=== PATIENT | male | born 1970 | race Caucasian/White ===

== ENCOUNTER 2016-11-15 18:42 | Emergency (ER) | payer OTHER ==
[2016-11-15] MEDS ORDERED: NS 1,000 ML IV ONE ×2 (18:51→19:51)
[2016-11-15 18:54] VITALS: TEMP 98.2
[2016-11-15 18:55] LABS: % IMMATURE GRANULYOCYTES 0.2 % (0.0-1.1); ABSOLUTE IMMATURE GRANULOCYTES 0.02 10^3/uL (0.00-0.10); ADD DIFF? NO; ADD MORPH? NO; ADD SCAN? NO; ATYPICAL LYMPHOCYTE FLAG 10 (0-99); FRAGMENT RBC FLAG 0 (0-99); HEMATOCRIT 48.3 % (40.0-51.0); HEMOGLOBIN 17.1 g/dL (13.7-17.5); LEFT SHIFT FLG 0 (0-99); LIPEMIA HEMOLYSIS FLAG 90 (0-99); MEAN CELL HEMOGLOBIN CONCENTR. 35.4 g/dL (32.4-36.7); MEAN CELL VOLUME 90.3 fL (81.5-99.8); MEAN PLATELET VOLUME 10.2 fL (8.7-11.7); PLATELET CLUMPS FLAG 20 (0-99); PLATELET COUNT 281 10^3/uL (150-400); RED BLOOD CELL COUNT 5.35 10^6/uL (4.40-6.38); RED CELL DISTRIBUTION WIDTH 12.1 % (11.5-15.2)
[2016-11-15 19:07] LABS: ANION GAP 17 mEq/L (8-16); CALCIUM 9.7 mg/dL (8.5-10.4); CARBON DIOXIDE 22 mEq/l (22-31); CHLORIDE 97 mEq/L (97-110); CREATININE 1.3 mg/dL (0.7-1.3); GLOMERULAR FILTRATION RATE 60; GLUCOSE 141 mg/dL (70-100); POTASSIUM 3.3 mEq/L (3.5-5.2); SODIUM 136 mEq/L (134-144)
--- NOTE | 2016-11-15 19:07 | CPEKG ---
Heart Rate: 86 RR Interval: 698 P-R Interval: 164 QRSD Interval: 94 QT Interval: 400 QTC Interval: 479 P [place]: 72 QRS [place]: 4 T Wave [place]: 48 EKG Severity - BORDERLINE ECG - EKG Impression: SINUS RHYTHM EKG Impression: BORDERLINE PROLONGED QT INTERVAL Electronically Signed By: Ross Patterson 18-Nov-2016 17:06:48
--- NOTE | 2016-11-15 19:08 | EDPHY ---
H & P Stated Complaint: Marijuana ingestion, feels "weird" Source: Patient, EMS Exam Limitations: No limitations HPI/ROS: CHIEF COMPLAINT: Marijuana ingestion, multiple complaints HISTORY OF PRESENT ILLNESS: Patient arrives by EMS and was seen at time of arrival. Reports ingestion of 20mg edible indica marijuana over 4 hours. He reports that he and his came up from [place] for a date night. They were going to dinner at a concert. He took 10 mg then waited 1 hour. He says that he felt nothing and then took another 10 mg. He said it dinner while having glass a wine it hit him quite quickly. He felt multiple complaints. This included difficulty moving, brief chest pain, feeling "weird" and possibly having a seizure. Difficult for him to quantify the symptoms. They have wax and wane. His chest pain lasted no more than 10 seconds he says. He currently has no chest pain. He still says that he does feel unusual but cannot describe how he feels. He has not use marijuana ever in the past. No other associated complaints or modifying factors. REVIEW OF SYSTEMS: Ten systems reviewed and are negative unless otherwise noted in the HPI PAST MEDICAL HISTORY: Epilepsy. Takes lamotrigine with recent PCP evaluation PAST SURGICAL HISTORY: None SOCIAL HISTORY: Nonsmoker. Lives in [facility] FAMILY HISTORY: Noncontributory EXAMINATION General Appearance: Alert, no distress, anxious Head: normocephalic, atraumatic Eyes: Pupils equal and round, no conjunctival pallor or injection. EOMs intact ENT, Mouth: Mucous membranes moist. Airway patent Neck: Normal inspection, supple, non-tender Respiratory: Lungs are clear to auscultation Cardiovascular: Regular rate and rhythm. No murmur. Pulses intact distally Gastrointestinal: Abdomen is soft and nontender Back: non-tender, no bony abnormalities Neurological: GCS 15. A&O, nonfocal, strength symmetric in all 4 limbs. No pronator drift. No dysmetria. NIH stroke scale is 0 Skin: Warm and dry, no rash Extremities: Nontender, no pedal edema Psychiatric: Mood and affect normal DIFFERENTIAL DIAGNOSES: Including but not limited to marijuana ingestion, marijuana overdose, dehydration, electrolyte disturbance, seizure MDM: 6:50 p.m. Ingestion of 20 mg of marijuana intervals between 2:00 p.m. and 5:00 p.m. Patient reports multiple symptoms, all of which appear related to marijuana ingestion. Vital signs are stable with mild tachycardia. I have ordered EKG laboratory studies although I do feel this is completely related to the marijuana ingestion. He is in no acute distress. 7:15 p.m. I have re-evaluated the Patient. He remains calm but still feeling abnormal. Vital signs are within normal limits. 7:45 p.m. I have re-evaluated the patient. He says that he is feeling more anxious but that the remainder of his symptoms are improving. I have ordered Ativan and further IV fluid as he does continue to feel dry mouth. Vital signs are within normal limits. No acute distress. 8:20 p.m. I have re-evaluated the patient. He is feeling significantly better at this time. Acute marijuana intoxication without any complication. Vital signs remained stable. He arrives by ambulance and plans to take a cab back to his hotel. He is discharged home stable condition at this time. (Huey Toscano) Constitutional: Initial Vital Signs Temperature (C) 36.8 C 11/15/16 18:51 Heart Rate 81 11/15/16 18:51 Respiratory Rate 16 11/15/16 18:51 Blood Pressure 123/76 H 11/15/16 18:51 O2 Sat (%) 99 11/15/16 18:51 O2 Delivery Mode Room Air Allergies/Adverse Reactions: No Known Allergies Allergy (Unverified 11/15/16 19:02) Home Medications: Medication Instructions Recorded LaMICtal 11/15/16 Medical Decision Making ED Course/Re-evaluation: The patient was evaluated and managed by the physician outpatient physical therapist assistant. I have reviewed this chart and I agree with the findings and plan of care as documented , as indicated by my signature. I am the secondary supervising physician. ( Amy Cortez) - Data Points Laboratory Results: Laboratory Results 11/15/16 18:45 11/15/16 18:45 Medications Given: Discontinued Medications Sodium Chloride (Ns) 1,000 mls @ 0 mls/hr IV EDNOW ONE; Wide Open PRN Reason: Protocol Stop: 11/15/16 18:52 Last Admin: 11/15/16 19:01 Dose: 1,000 mls Sodium Chloride (Ns) 1,000 mls @ 0 mls/hr IV EDNOW ONE; Wide Open PRN Reason: Protocol Stop: 11/15/16 19:52 Last Admin: 11/15/16 20:03 Dose: 1,000 mls Lorazepam (Ativan Injection) 1 mg IVP EDNOW ONE Stop: 11/15/16 19:52 Last Admin: 11/15/16 20:03 Dose: 1 mg Departure - Departure Disposition: Home, Routine, Self-Care Clinical Impression: Marijuana intoxication Condition: Good Instructions: Medicinal Use of Cannabis (ED) Additional Instructions: 1. Follow up with primary care physician 2. Increase her fluid intake 3. do not drive for 8-12 hours Referrals: Patient,NotPresent [Unknown] - As per Instructions Angelica Weeks MD [[facility] [place] Primary Care Provider] - As per Instructions
[2016-11-15 19:18] LABS: TROPONIN I < 0.012 ng/mL (0.000-0.034)
[2016-11-15] MEDS ORDERED: LORazepam 2 MG/ML INJ IVP ONE (19:51)
[2016-11-15 20:05] VITALS: BP 101/66; PULSE 75; RESP 18; O2SAT 94
== END 2016-11-15 20:39 | disposition home or self-care (01) ==
LOC: EDUNIT#
PROC: 3E0337Z Introduction of Electrolytic and Water Balance Substance into Peripheral Vein, Percutaneous Approach (ICD-10-PCS; principal; 2016-11-15)
DX: F12.129 Cannabis abuse with intoxication, unspecified (principal); E86.9 Volume depletion, unspecified
CPT/HCPCS: 96374; J2060